=== PATIENT | female | born 1975 | race Caucasian/White ===

== ENCOUNTER 2017-08-06 14:18 | Emergency (ER) | payer BC ==
[2017-08-06 14:57] VITALS: BP 135/74
--- NOTE | 2017-08-06 16:24 | UC ---
Lower Extremity/Ankle HPI - HPI Summary HPI Summary: 15 lb bowling ball fell out of the bag onto the right foot. - History of Current Complaint Chief Complaint: UCLowerExtremity Stated Complaint: RT FOOT INJ Time Seen by Provider: 08/06/17 16:01 Hx Obtained From: Patient Hx Last Menstrual Period: 07/29/17 ?: No Onset/Duration: Sudden Onset, Still Present Severity Initially: Moderate Severity Currently: Moderate Aggravating Factor(s): Standing, Ambulation Alleviating Factor(s): Rest, Elevation Able to Bear Weight: Yes - with difficulty. Using a cane - Allergies/Home Medications Allergies/Adverse Reactions: Allergies Allergy/AdvReac Type Severity Reaction Status Date / Time No Known Allergies Allergy Verified 08/06/17 14:57 Home Medications: Home Medications FLUoxetine CAP* [PROzac CAP*] 20 mg PO DAILY 08/06/17 [History Confirmed ] PMH/Surg Hx/FS Hx/Imm Hx Cardiovascular History: Hypertension Respiratory History: Asthma Neurological History: Migraine Psychological History: Depression - Surgical History Surgical History: Yes Surgery Procedure, Year, and Place: - Family History Known Family History: Positive: Cardiac Disease, Hypertension, Diabetes - Social History Occupation: Employed Full-time Lives: With Family Alcohol Use: Weekly Substance Use Type: None Smoking Status (MU): Heavy Every Day Tobacco Smoker Type: Cigarettes Amount Used/How Often: 1 PPD Length of Time of Smoking/Using Tobacco: 27 Years Have You Smoked in the Last Year: Yes Cessation Counseling: Patient Advised to Stop - Immunization History Most Recent Influenza Vaccination: Not the Season Review of Systems Musculoskeletal: Arthralgia - right foot Is Patient Immunocompromised?: No All Other Systems Reviewed And Are Negative: Yes Physical Exam Triage Information Reviewed: Yes Appearance: Well-Appearing, Well-Nourished, Pain Distress - mild sitting in a wheelchair Vital Signs: Initial Vital Signs Temp 99 F 08/06/17 14:52 Pulse 54 08/06/17 14:52 Resp 16 08/06/17 14:52 BP 135/74 08/06/17 14:52 Pulse Ox 100 08/06/17 14:52 Vital Signs Reviewed: Yes Eyes: Positive: Conjunctiva Clear Neck exam: Normal Respiratory Exam: Normal Cardiovascular Exam: Normal Musculoskeletal: Positive: Strength Limited @ - right foot, ROM Limited @ - right great toe Neurological Exam: Normal Psychological Exam: Normal Skin: Positive: Other - bruising with swelling and tenderness over the right great toe up to the MTP joint. Lower Extremity Course/Dx - Differential Dx/Diagnosis Differential Diagnosis/HQI/PQRI: Contusion, Fracture (Closed), Sprain Provider Diagnoses: Closed fracture right 1st toe distal phalynx Discharge - Discharge Plan Condition: Stable Disposition: HOME Patient Education Materials: Toe Fracture (ED), Crutch Instructions (ED) Referrals: Roselia Cope PA [Primary Care Provider] - Sumanth Velazco MD [Medical Doctor] -
--- NOTE | 2017-08-06 16:32 | RAD ---
HISTORY: Right foot trauma COMPARISONS: None VIEWS: 3, Frontal, lateral, and oblique views of the right foot FINDINGS: BONE DENSITY: Normal. BONES: There is a comminuted nondisplaced fracture of the distal phalanx of the first digit with articular extension. JOINTS: There is no arthropathy. ALIGNMENT: There is no dislocation. SOFT TISSUES: Unremarkable. OTHER FINDINGS: None. IMPRESSION: COMMINUTED NONDISPLACED FRACTURE OF THE DISTAL PHALANX OF THE FIRST DIGIT.
== END 2017-08-06 16:56 | disposition home or self-care (01) ==
LOC: UCCORT 14:18
DX: S92.421A Displaced fracture of distal phalanx of right great toe, initial encounter for closed fracture (principal); W20.8XXA Other cause of strike by thrown, projected or falling object, initial encounter; Y93.9 Activity, unspecified; Y92.9 Unspecified place or not applicable; Z72.0 Tobacco use
CPT/HCPCS: 99213; G0463

== ENCOUNTER → 2018-07-16 07:49 | Day surgery (SDC) | payer BC ==
[~2018-07-16 07:49] MED LIST: Buffered Lidocaine 0.9% SYRIN* 5 ML/SYR SYRINGE INTRADERM ONE; Bupivacaine 0.25% SDV PF* 10 ML VIAL INJ ONE; Dexamethasone TAB* 4 MG ONE; Dexamethasone TAB* 4 MG PO ONE; DiMENhydriNATE IV* 50 MG/ML VIAL IV PUSH PRN; EPHEDrine (Pressors)* 50 MG/ML VIAL ONE; Famotidine IV* 10 MG/ML 2 ML (20 mg) IV ONE; Famotidine IV* 10 MG/ML 2 ML (20 mg) ONE; KETAMINE HCL* 50 MG/ML 10 ML VIAL ONE; Ketorolac INJ* 30 MG/ML 1 ML VIAL ONE; Lactated Ringers 1000 ML Bag* 1,000 ML IV SCH; Lidocaine 2% PF * 5 ML VIAL ONE; Midazolam* 1 MG/ML 5 ML VIAL (5 MG) ONE; Morphine VIAL* 10 MG/ML 1 ML VIAL ONE; Morphine VIAL* 4 MG/ML VIAL (1 ml vial) IV PRN; Naloxone* 0.4 MG/ML 1 ML VIAL IV PRN; Ondansetron INJ* 2 MG/ML VIAL ONE; Ondansetron ODT TAB* 4 MG ONE; PROCHLORPERAZINE INJ 5 MG/ML 2 ML VIAL IV PRN; Propofol* 10 MG/ML 20 ML BTL ONE; Scopolamine 1.5 mg* PATCH TRANSDERM PRN; Scopolamine PATCH Remove* 1 NOTE MISC PATCH OFF ONE; ceFAZolin 2 GM PREMIX in ORs 2 GM/50 ML BAG IVPB ONE; fentaNYL* 50 MCG/ML 2 ML VIAL (100 MCG VIAL) ONE; oxyCODONE/Acetamin 5/325 MG* TAB ONE; oxyCODONE/Acetamin 5/325 MG* TAB PO PRN
[2018-07-16] MEDS: fentaNYL* 50 MCG/ML 2 ML VIAL (100 MCG VIAL) IV PRN ×3 (13:24→13:39)
[2018-07-16 15:05] VITALS: BP 136/90
--- NOTE | 2018-07-19 20:13 | OP ---
DATE OF OPERATION: 07/16/18 - [facility] DATE OF : 75 SURGEON: Mario Medina MD. BIOLOGY LECTURER: JUSTIN Crow. An registered dental assistant rda was needed for the entirety of the procedure to aid in positioning of the arm and retraction. ANESTHESIA: General. PRE-OP DIAGNOSES: 1. 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 2. Right pisotriquetral joint degenerative joint disease. POST-OP DIAGNOSES: 1. 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 2. Right pisotriquetral joint degenerative joint disease. OPERATIVE PROCEDURE: 1. Right wrist arthroscopic partial synovectomy and TFCC debridement. 2. Right pisiform excision. 3. Right ulnar shortening osteotomy. INDICATIONS: Donita is 42 years old. She has a 6- to 7-year history of progressive right ulnar-sided wrist pain. She has had nonoperative treatment and the pain has just progressed over the years. MRI had shown what looked like a central TFCC tear and slight ulnar neutral to ulnar positive variance. Additionally, she had severe pain with any compression of the pisotriquetral joint. I told her that I thought the best thing to do to alleviate her pain would be to excise the pisiform bone, to do an arthroscopic debridement, and to shorten the ulna. She understands that there is a risk that she may have pain despite having surgery. There is also risk of nonunion at the osteotomy site. She wanted to proceed with surgery. FINDINGS: See above and below. ESTIMATED BLOOD LOSS: 2 mL. COMPLICATIONS: None. DESCRIPTION OF PROCEDURE: Donita was seen in the preoperative holding area. The correct site, side, and procedure were identified. We came back to the operating room where the arm was prepped and draped in the usual fashion and a time-out was performed. The arm was placed in the Acumed traction tower and appropriate in-line traction was applied. The arm was then exsanguinated and the tourniquet inflated to 250 mmHg. I developed a 3-4 portal using the 11 blade followed by the mosquito and followed by the blunt trocar. The camera was introduced. The radial-sided structures, all looked good. There was no significant step-off at the scapholunate joint. I came more ulnarly. The lunate facet looked good. The central TFCC was just cell-layer thick and easily penetrable by the probe. I did establish a 6R portal in a standard fashion and I had introduced the probe through that portal. I then introduced the shaver through the 6R portal. I performed a debridement of the TFCC as well as a partial synovectomy. Everything else was looking reasonable, so I withdrew the arthroscopic equipment and we proceeded with the next portion of the case. I took the hand out of the arthroscopic tower and all the arthroscopic equipment was handed off. I then made a V-shaped incision over the pisiform bone and radially based flap was raised off the pisiform. The soft tissue about the pisiform was released, splitting the FCU tendon longitudinally, and then shelling out the pisiform bone; this was removed in its entirety in one piece. I thought prior that I may do an ulnar decompression, but by removing the pisiform bone, we should decompress the ulnar nerve as well, and so I irrigated everything out and I repaired the tendon split with some 3-0 PDS suture. Skin was closed with 4-0 nylon suture. Lastly, I made a longitudinal incision over the [id number] aspect of the ulnar shaft. Dissection was carried down and full-thickness flaps were raised off the fascia. The periosteum over the subcutaneous border of the ulna was incised longitudinally and subperiosteal flaps were used to expose the ulna. The TriMed ulna shortening osteotomy plate was placed on the dorsal aspect of the shaft and clamped into place. One screw was placed in the distal aspect of the oblong hole. On the other side of the plate, three cortical screws were placed. I then secured the lag screw guide with two pins. I then placed the 3- mm cutting block which was what I had selected preoperatively, pinned and clamped this into place, and then made my first osteotomy. Cutting block B was then brought in and again pinned and clamped and then the second osteotomy was made. A wafer of bone was excised. Irrigation was used throughout the osteotomies to prevent thermal necrosis. I then placed the compression clamp in a standard fashion and compressed across the osteotomy. I drilled, tapped, and then placed a lag screw. The remainder of the cortical screws were all placed. I had loosened my oblong hole while placing the lag screw so as to get maximum compression. Once everything was fully tightened down, screw length and everything was checked on mini C-arm fluoroscopy, everything was looking good as were the wrist and elbow. The osteotomy site was hardly visible on the fluoroscopy. We irrigated out and then closed the fascia with 3-0 Vicryl suture. The skin was closed with 4-0 Monocryl suture and Steri-Strips. The portal sites were closed with the Steri-Strips. The Marcaine was infiltrated all about the operative area. The dressings were applied and a sugar-tong splint was applied. Tourniquet was deflated and she was taken to the recovery room in stable condition. [id number]/[facility] #: [id number] DONTRELL
== END | disposition home or self-care (01) ==
LOC: OR 07:49
PROVIDERS: ATTEND Orthopaedic Surgery Hand Surgery
DX: M24.831 Other specific joint derangements of right wrist, not elsewhere classified (principal); G56.21 Lesion of ulnar nerve, right upper limb; I10 Essential (primary) hypertension; F17.210 Nicotine dependence, cigarettes, uncomplicated; F41.8 Other specified anxiety disorders; J45.909 Unspecified asthma, uncomplicated; M19.90 Unspecified osteoarthritis, unspecified site
CPT/HCPCS: 76001; 81025; 88304; 88311; A9270-GY; C1713; C1776; J0690; J1885; J2250; J2270; J2704; J3010; J3490; J8540

== ENCOUNTER 2018-09-22 15:30 | Emergency (ER) | payer BC ==
--- OUTSIDE RECORDS SUMMARY | 2018-09-22 15:39 | XMS REPORT | Continuity of Care Document ---
:1975 External Reference #:[id number] Author Name EdgarRolly selfie Care Team Providers Name Role Phone Roselia Cope RPA Primary Care Physician Unavailable Payers Date Identification Numbers Payment Provider Subscriber Policy Number: [id number] [employer] Donita Diaz PayID: [id number] [address] [address] [place] [address] Advance Directives Description No Information Available Problems Date Description Provider Status Onset: 05/18/2018 Other specific joint derangements of Mario Medina MD Active right wrist, not elsewhere classified Onset: 05/18/2018 Lesion of ulnar nerve Mario Medina MD Active Family History Date Family Member(s) Observation Comments General Diabetes General Heart Disease General Hypertension General Cancer General Depression Father Heart Disease Father Hypertension Father Diabetes Mother Depression Social History Type Date Description Comments Sex Unknown Marital Status Lives With Spouse 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 Tobacco Use Start: Unknown Current Cigarette Smoker 1 Pack Daily Smoking Status Reviewed: 08/24/18 Current Cigarette Smoker 1 Pack Daily ETOH Use Drinks 2 Alcoholic Beverages Per Week Tobacco Use Start: Unknown Heavy tobacco smoker (more than 10 cigarettes/day) Recreational Drug Use Denies Drug Use Exercise Type/Frequency Exercises sporadically Allergies, Adverse Reactions, Alerts Description No Known Drug Allergies Medications Medication Date Status Form Strength Qnty SIG Indications Ordering Provider Metoclopramide 00/00/ Active Tablets 10mg TK 1 T PO Unknown HCL 0000 tid prn For Nausea Fluoxetine HCL 00/00/ Active Capsules 20mg TK 1 C PO Unknown 0000 qd Sumatriptan 00/00/ Active Tablets 100mg 9tabs as needed Unknown Succinate 0000 Trazodone HCL 00/00/ Active Tablets 100mg TK 1 by Unknown 0000 mouth daily Nadolol 00/00/ Active Tablets 20mg TK 1 T PO Unknown 0000 qd Ibuprofen 00/00/ Active Tablets 200mg 4 tabs by Unknown 0000 mouth as needed Hydrocodone-Acet 07/16/ Hx Tablets 5-325mg 30tabs 1 or 2 Mario aminophen 2018 - tabs by MD Carol 08/21/ mouth 2019 every 6-8 hours as needed for pain Ibuprofen 08/07/ Hx Tablets 800mg 90tabs 1 by mouth [id number] Sumanth Ornelas 2017 - three MD Mora 05/17/ times a 2017 day w food as needed pain and swelling Immunizations Description No Information Available Vital Signs Date Vital Result Comment 08/24/2018 10:55am Height 64.75 inches 5'4.75" Weight 212.00 lb BP Systolic Sitting 124 mmHg BP Diastolic Sitting 78 mmHg Respiratory Rate 16 /min Pain Level 4 swelling noted BMI (Body Mass Index) 35.5 kg/m2 07/27/2018 9:53am Height 64.75 inches 5'4.75" Heart Rate 82 /min BP Systolic Sitting 100 mmHg BP Diastolic Sitting 72 mmHg Body Temperature 99.6 F Pain Level 8 07/06/2018 9:49am Height 64.75 inches 5'4.75" Weight 212.00 lb Heart Rate 64 /min BP Systolic 122 mmHg BP Diastolic 76 mmHg Pain Level 7 BMI (Body Mass Index) 35.5 kg/m2 05/18/2018 1:45pm Height 64.75 inches 5'4.75" Weight 210.00 lb Heart Rate 71 /min BP Systolic Sitting 114 mmHg BP Diastolic Sitting 84 mmHg Respiratory Rate 16 /min Pain Level 3 O2 % BldC Oximetry 94 % BMI (Body Mass Index) 35.2 kg/m2 08/07/2017 12:53pm Height 66 inches 5'6" Weight 181.31 lb Heart Rate 66 /min BP Systolic Sitting 128 mmHg BP Diastolic Sitting 72 mmHg Respiratory Rate 18 /min Pain Level 7 BMI (Body Mass Index) 29.3 kg/m2 Results Test Date Facility Test Result H/L Range Note Laboratory test 07/16/2018 [facility] Surgical SEE RESULT [address] [place] [address] [phone] 1 SEE RESULT BELOW Name: DONITA PINEDA : [address]: Mario Medina MD Acct: [id number] Unit: [id number] AGE: 42 Location: OR Re07/16/18 SEX: F Status: REG SDC SPEC: [id number] KARI: 07/16/18- [facility] DR: Mario Medina MD REQ: [id number] RECD: 07/16/18 STATUS: SOUT _ ORDERED: Patricio, LEVEL 3 FINAL DIAGNOSIS Right ulnar shaft, excision: -- Benign bone fragment. PRE-OPERATIVE DIAGNOSIS Other specific derangement of right wrist GROSS DESCRIPTION The specimen is received in formalin labeled, Right Ulnar Shaft, and consists of a 2.0 x 1.2 x 0.2 cm momin-white annular bone fragment with a central 0.5 x 0.4 cm defect. Entirely submitted, one cassette following decalcification. Signed by and Reported on: Stephani Patel MD 07/20/18 1350 END OF REPORT DEPARTMENT OF PATHOLOGY, [address] [place] [address] Gareth Worrell M.D. Director [facility] # [id number] Procedures Date Code Description Status 07/16/2018 11079 Arthroscopy Wrist Excision/Repair Triang Completed Fibrocartilage/Debride 07/16/2018 71681 Arthroscopy Wrist Excision/Repair Triang Completed Fibrocartilage/Debride 07/16/2018 77211 Osteoplasty Shorten Radius Or Ulna Completed 07/16/2018 73259 Osteoplasty Shorten Radius Or Ulna Completed 07/16/2018 93430 Carpectomy One Bone Completed 08/07/2017 77578 FX Treatment Great Toe; Closed w/o manipulation Completed Encounters Type Date Location Provider Dx Diagnosis Office Visit 05/18/2018 Orthopedic Mario Medina, M24.831 Ot [facility] G56.21 Lesion of ulnar nerve, right upper limb Plan of Treatment Future Appointment(s):09/28/2018 10:30 am - Mario Medina MD at [facility]05/08/2019 - Mario Medina, MDM24.831 Other specific joint derangements of right wrist, not elsewhNew Xrays:Forearm Right 2 VWS, Ordered: 08/24/18Wrist Right 3+ VWS, Ordered: 08/24/18New Therapy:Physical TherapyFollow up:Follow up: 4 elhgbY90.21 Lesion of ulnar nerve, right upper limb
[2018-09-22 15:47] VITALS: BP 108/65
--- NOTE | 2018-09-22 15:55 | UC ---
Respiratory Complaint HPI - HPI Summary HPI Summary: C/O cough x 1 week, worsening, with cough productive of green sputum. Wheezing/ sinus pain worse at night. Still smoking. - History of Current Complaint Chief Complaint: UCRespiratory Stated Complaint: COUGH Hx Obtained From: Patient Hx Last Menstrual Period: uterine ablation ?: No Onset/Duration: Sudden Onset, Lasting Weeks - 1, Worse Since - onset Timing: Constant Severity Initially: Mild Severity Currently: Moderate Pain Intensity: 4 Character: Cough: Productive Aggravating Factors: Deep Breaths, Recumbent Position Alleviating Factors: Nothing Associated Signs And Symptoms: Positive: Dyspnea, Chills, Wheezing, URI, Nasal Congestion, Sinus Discomfort - Risk Factors Pulmonary Embolism Risk Factors: Smoking Cardiac Risk Factors: Smoking - Allergies/Home Medications Allergies/Adverse Reactions: Allergies Allergy/AdvReac Type Severity Reaction Status Date / Time No Known Allergies Allergy Verified 07/11/18 13:29 Home Medications: Home Medications guaiFENesin ER TAB [Mucinex*] 600 mg PO BID 09/22/18 [History Confirmed 09/22/18 ] PMH/Surg Hx/FS Hx/Imm Hx Cardiovascular History: Hypertension Respiratory History: Asthma Psychological History: Depression - Surgical History Surgical History: Yes Surgery Procedure, Year, and Place: x2 1995,1998. D&C with ablation . R arm surgery - Family History Known Family History: Positive: Cardiac Disease, Hypertension, Diabetes - Social History Occupation: Disabled Lives: With Family Alcohol Use: Occasionally Substance Use Type: None Smoking Status (MU): Light Every Day Tobacco Smoker Type: Cigarettes Amount Used/How Often: 1 PPD Length of Time of Smoking/Using Tobacco: 27 Years Have You Smoked in the Last Year: Yes Cessation Counseling: Patient Advised to Stop - Immunization History Most Recent Influenza Vaccination: Not the Season Review of Systems All Other Systems Reviewed And Are Negative: Yes Constitutional: Positive: Chills, Fatigue ENT: Positive: Sore Throat, Nasal Discharge, Sinus Congestion Respiratory: Positive: Shortness Of Breath, Cough Is Patient Immunocompromised?: No Physical Exam Triage Information Reviewed: Yes Appearance: No Pain Distress, Ill-Appearing, Obese Vital Signs: Initial Vital Signs Temp 97.3 F 09/22/18 15:44 Pulse 79 09/22/18 15:44 Resp 18 09/22/18 15:44 BP 108/65 09/22/18 15:44 Pulse Ox 98 09/22/18 15:44 Vital Signs Reviewed: Yes Eyes: Positive: Conjunctiva Inflamed ENT: Positive: Pharynx normal, Nasal congestion, TMs normal Neck exam: Normal Respiratory: Positive: Wheezing - expiratory wheeze with coughing Cardiovascular Exam: Normal Musculoskeletal Exam: Normal Neurological Exam: Normal Psychological Exam: Normal Skin Exam: Normal Respiratory Course/Dx - Differential Dx/Diagnosis Differential Diagnosis/HQI/PQRI: Asthma, Lower Resp Infection, Sinusitis Provider Diagnosis: Upper respiratory infection, Bronchospasm, acute, Sinusitis Discharge - Sign-Out/Discharge Documenting (check all that apply): Patient Departure All imaging exams completed and their final reports reviewed: No Studies - Discharge Plan Condition: Stable Disposition: HOME Prescriptions: Albuterol HFA INHALER* [Ventolin HFA Inhaler*] 2 puff INH Q4H PRN #1 mdi PRN Reason: Sob/Wheezing DOXYcycline CAP(*) [DOXYcycline 100MG CAP(*)] 100 mg PO BID #20 cap predniSONE TAB* [Deltasone 20 MG TAB*] 60 mg PO DAILY #18 tab Patient Education Materials: Upper Respiratory Infection (ED), Wheezing (ED), Prednisone (By mouth), Sinusitis (ED), Doxycycline (By mouth) Referrals: Roselia Cope PA [Primary Care Provider] - Additional Instructions: Smoking Cessation Tricks. 1. Cut down by 1 cigarette per day every 2-3 days. Write the number of smokes for that day on the calendar. 2. Identify triggers to smoking: after meals, on the phone, in the car, with coffee, on breaks at work, etc. 3. Formulate a plan with a behavior to replace the smoking. Fireballs in the car , doodle pad on the phone, flavored creamer for the coffee, go for a walk after a meal or on break at work. 4. For stress smokes do deep breathing relaxation. Breath deep in through the nose hold the breath in for a few seconds then breath out slowly through the mouth. - Billing Disposition and Condition Condition: STABLE Disposition: Home
== END 2018-09-22 16:11 | disposition home or self-care (01) ==
LOC: UCCORT 15:30
DX: J01.90 Acute sinusitis, unspecified (principal); J98.01 Acute bronchospasm; I10 Essential (primary) hypertension; J45.909 Unspecified asthma, uncomplicated; F17.210 Nicotine dependence, cigarettes, uncomplicated; Z79.899 Other long term (current) drug therapy
CPT/HCPCS: 99212; G0463

== ENCOUNTER 2018-11-06 08:33 | Emergency (ER) | payer BC ==
[2018-11-06 08:53] VITALS: BP 116/70
--- NOTE | 2018-11-06 09:12 | UC ---
Throat Pain/Nasal Jesus HPI - HPI Summary HPI Summary: sinus pain and pressure x 4 weeks nasal congestion , pnd, productive cough with yellow sputum , fever, chills and body aches - History of Current Complaint Chief Complaint: UCRespiratory Stated Complaint: SINUSES,CONGESTION Time Seen by Provider: 11/06/18 08:56 Hx Obtained From: Patient Hx Last Menstrual Period: uterine ablation ?: No Onset/Duration: Gradual Onset, Lasting Weeks - 4, Still Present Severity: Moderate Pain Intensity: 7 Cough: Sputum Appears - yellow Associated Signs & Symptoms: Positive: Wheezing, Sinus Discomfort, Nasal Discharge, Fever. Negative: Rash - Allergies/Home Medications Allergies/Adverse Reactions: Allergies Allergy/AdvReac Type Severity Reaction Status Date / Time No Known Allergies Allergy Verified 11/06/18 08:52 PMH/Surg Hx/FS Hx/Imm Hx Cardiovascular History: Hypertension Respiratory History: Asthma Neurological History: Migraine Psychological History: Depression - Surgical History Surgical History: Yes Surgery Procedure, Year, and Place: x2 1995,1998. D&C with ablation . R arm surgery - Family History Known Family History: Positive: Cardiac Disease, Hypertension, Diabetes - Social History Alcohol Use: Occasionally Substance Use Type: None Smoking Status (MU): Heavy Every Day Tobacco Smoker Type: Cigarettes Amount Used/How Often: 1 PPD Length of Time of Smoking/Using Tobacco: 27 Years Have You Smoked in the Last Year: Yes - Immunization History Most Recent Influenza Vaccination: Not the Season Review of Systems All Other Systems Reviewed And Are Negative: Yes Constitutional: Positive: Fever, Chills, Fatigue Skin: Positive: Negative Eyes: Positive: Negative ENT: Positive: Nasal Discharge, Sinus Congestion, Sinus Pain/Tenderness Respiratory: Positive: Shortness Of Breath, Cough Is Patient Immunocompromised?: No Physical Exam Triage Information Reviewed: Yes Appearance: Well-Appearing, No Pain Distress, Well-Nourished Vital Signs: Initial Vital Signs Temp 97.4 F 11/06/18 08:47 Pulse 67 11/06/18 08:47 Resp 16 11/06/18 08:47 BP 116/70 11/06/18 08:47 Pulse Ox 98 11/06/18 08:47 Vital Signs Reviewed: Yes Eye Exam: Normal Eyes: Positive: Conjunctiva Clear ENT: Positive: Normal ENT inspection, Hearing grossly normal, Pharyngeal erythema, Nasal congestion, Nasal drainage, TMs normal, Sinus tenderness. Negative: TM bulging, TM dull, TM red Neck exam: Normal Neck: Positive: Supple, Nontender Respiratory: Positive: Chest non-tender, Lungs clear, Normal breath sounds, No respiratory distress Cardiovascular: Positive: RRR, No Murmur, Pulses Normal Skin Exam: Normal Throat Pain/Nasal Course/Dx - Differential Dx/Diagnosis Provider Diagnosis: Bronchitis, Sinusitis Discharge - Sign-Out/Discharge Documenting (check all that apply): Patient Departure All imaging exams completed and their final reports reviewed: No Studies - Discharge Plan Condition: Stable Disposition: HOME Prescriptions: Albuterol HFA INHALER* [Ventolin HFA Inhaler*] 2 puff INH Q6H PRN #1 mdi PRN Reason: Wheezing Codeine Phosphate/Guaifenesin [Cheratussin AC] 10 ml PO Q8H #120 ml MDD 30 ml predniSONE [Prednisone 20 MG TAB] 20 mg PO BID #10 tablet Patient Education Materials: Sinusitis (ED) Referrals: Roselia Cope PA [Primary Care Provider] - 7 Days - Billing Disposition and Condition Condition: STABLE Disposition: Home
== END 2018-11-06 09:14 | disposition home or self-care (01) ==
LOC: UCCORT 08:33
DX: J45.909 Unspecified asthma, uncomplicated (principal); J32.9 Chronic sinusitis, unspecified; I10 Essential (primary) hypertension; G43.909 Migraine, unspecified, not intractable, without status migrainosus; F32.9 Major depressive disorder, single episode, unspecified; F17.210 Nicotine dependence, cigarettes, uncomplicated
CPT/HCPCS: 99212; G0463

== ENCOUNTER 2019-03-25 17:48 | Emergency (ER) | payer BC ==
[2019-03-25 18:27] VITALS: BP 116/72
--- NOTE | 2019-03-25 20:28 | UC ---
Shortness of Breath HPI - HPI Summary HPI Summary: 43 year old female presents with coughing, non-productive, shortness of breath, wheezing, chills, fatigue, body aches. Denies ear pain. NO recent abx, was given steroids for similar symptoms approximately a year ago. - History of Current Complaint Chief Complaint: UCGeneralIllness Stated Complaint: COUGH/CONGESTION Time Seen by Provider: 03/25/19 18:29 Hx Last Menstrual Period: ablation ?: No Onset/Duration: Sudden Onset, Lasting Days - 8 days Timing: Constant Dyspnea At: Rest, Exertion Aggravating Factors: Deep Breaths, Recumbent Position Alleviating Factors: Bronchodilators - albuterol, however minimal help, OTC Meds Associated Signs & Symptoms: Positive: Cough (Nonproductive), Wheezing, Dizzy - x 1 while cough a lot. Negative: Fever - Allergy/Home Medications Allergies/Adverse Reactions: Allergies Allergy/AdvReac Type Severity Reaction Status Date / Time No Known Allergies Allergy Verified 03/25/19 18:20 Home Medications: Home Medications Dextromethorphan Hb/Doxylamine [Night Time Cough Liquid] 1 udc PO BEDTIME PRN [History Confirmed 03/25/19] PMH/Surg Hx/FS Hx/Imm Hx Previously Healthy: No Endocrine History: Thyroid Disease Respiratory History: Other - TOB h/o - Surgical History Surgical History: Yes Surgery Procedure, Year, and Place: x2 1995,1998. D&C with ablation . R arm surgery - Family History Known Family History: Positive: Cardiac Disease, Hypertension, Diabetes, Non- Contributory - Social History Alcohol Use: Occasionally Substance Use Type: None Smoking Status (MU): Heavy Every Day Tobacco Smoker Type: Cigarettes Amount Used/How Often: 1/2 PPD Length of Time of Smoking/Using Tobacco: 27 Years Have You Smoked in the Last Year: Yes - Immunization History Most Recent Influenza Vaccination: Not the 2013/2014 Season Review of Systems All Other Systems Reviewed And Are Negative: Yes Constitutional: Positive: Fatigue ENT: Positive: Sore Throat, Nasal Discharge, Sinus Congestion, Sinus Pain/ Tenderness Respiratory: Positive: Shortness Of Breath, Cough Is Patient Immunocompromised?: No Physical Exam Triage Information Reviewed: Yes Appearance: No Pain Distress, Well-Nourished, Ill-Appearing - moderate Vital Signs: Initial Vital Signs Temp 98.2 F 03/25/19 18:24 Pulse 74 03/25/19 18:24 Resp 18 03/25/19 18:24 BP 116/72 03/25/19 18:24 Pulse Ox 97 03/25/19 18:24 Eyes: Positive: Conjunctiva Clear ENT: Positive: Pharynx normal, TMs normal, TM bulging, TM dull, TM red, Sinus tenderness - b/l frontal, max. Negative: Tonsillar swelling, Tonsillar exudate Neck: Positive: Supple, Nontender, No Lymphadenopathy. Negative: Nuchal Rigidity, Enlarged Nodes @ Respiratory: Positive: Chest non-tender, Normal breath sounds, No respiratory distress, No accessory muscle use, Wheezing - expiratory mild b/l Cardiovascular: Positive: RRR, No Murmur Musculoskeletal: Positive: Strength Intact Neurological: Positive: Alert Skin Exam: Normal Shortness of Breath Dx - Course Course Of Treatment: Acute bronchitis, sinusitis - Antibiotics as directed due to h/o tob use daily and currently. - Albuterol inhaler as needed for shortness of breath, coughing - Medrol dose pack to help cough, decreased wheezing. Take as directions on packet. - Increase fluid intake - Humidifer at night to help with cough - Benadryl as needed to decrease congestion, post nasal drip - GO to ER with increased shortness of breath, fever > 102 - FOllow up with primary physician within 2-3 days if no improvement - Differential Dx/Diagnosis Differential Diagnosis/HQI/PQRI: Bronchitis Provider Diagnosis: Acute bronchitis, Sinusitis Discharge ED - Sign-Out/Discharge Documenting (check all that apply): Patient Departure All imaging exams completed and their final reports reviewed: No Studies - Discharge Plan Condition: Good Disposition: HOME Prescriptions: Amoxicillin/Clavulanate TAB* [Augmentin TAB 875*] 875 mg PO BID #14 tab methylPREDNISolone [Medrol Dosepak 4 MG*] 0 mg PO .SEE BILLIE INSTRUCTION #1 billie Patient Education Materials: Acute Bronchitis (ED), Sinusitis (ED) Referrals: Roselia Cope PA [Primary Care Provider] - Additional Instructions: - Antibiotics as directed - Albuterol inhaler as needed for shortness of breath, coughing - Medrol dose pack to help cough, decreased wheezing. Take as directions on packet. - Increase fluid intake - Humidifer at night to help with cough - Benadryl as needed to decrease congestion, post nasal drip - GO to ER with increased shortness of breath, fever > 102 - FOllow up with primary physician within 2-3 days if no improvement - Billing Disposition and Condition Condition: GOOD Disposition: Home
== END 2019-03-25 19:03 | disposition home or self-care (01) ==
LOC: UCCORT 17:48
DX: J20.9 Acute bronchitis, unspecified (principal); J32.9 Chronic sinusitis, unspecified; F17.210 Nicotine dependence, cigarettes, uncomplicated
CPT/HCPCS: 99212; G0463

== ENCOUNTER 2019-07-29 16:04 | Emergency (ER) | payer BC ==
[2019-07-29 16:15] VITALS: BP 122/92
--- NOTE | 2019-07-29 16:18 | UC ---
Respiratory Complaint HPI - HPI Summary HPI Summary: 43 y/o female presents to the urgent care c/o nasal congestion w/ yellowish nasal discharge w/ sinus pain and AQUINO for more that a week. Symptoms worsen about 4 day ago w/ dry cough, moderate PND and RT ear pressure and pain. She has been able to sleep well due to cough last night. she has been taken Tylenol cold and cough to alleviate symptoms w/o any improvement. sinus pain is 5/10. Pt has felt subjective fever at times. Pt denies wheezing, dizziness, SOB, chest pain, abdominal pain, N/V/d. - History of Current Complaint Chief Complaint: UCGeneralIllness Stated Complaint: COUGH/CHEST/CONGESTION Time Seen by Provider: 07/29/19 16:17 Hx Obtained From: Patient Hx Last Menstrual Period: ablation Onset/Duration: Gradual Onset, Lasting Weeks - more than 1 week w/ URI symptoms , Still Present, Worse Since - 3 days Severity Initially: Mild Severity Currently: Moderate Pain Intensity: 5 - sinus pain Pain Scale Used: 0-10 Numeric Character: Cough: Nonproductive Aggravating Factors: Recumbent Position Alleviating Factors: OTC Meds Associated Signs And Symptoms: Positive: Fever, URI, Nasal Congestion - yellowish, Sinus Discomfort. Negative: Wheezing, Dizziness - Risk Factors Pulmonary Embolism Risk Factors: Negative Cardiac Risk Factors: Negative Pseudomonas Risk Factors: Negative - Allergies/Home Medications Allergies/Adverse Reactions: Allergies Allergy/AdvReac Type Severity Reaction Status Date / Time No Known Allergies Allergy Verified 07/29/19 16:14 Home Medications: Home Medications Phenylephrine/Dm/Acetaminop/GG [Tylenol Cold-Flu Severe Caplet] 1 each PO ONCE PRN 07/29/19 [History Confirmed 07/29/19] PMH/Surg Hx/FS Hx/Imm Hx Previously Healthy: Yes Respiratory History: Asthma - controlled - Surgical History Surgical History: Yes Surgery Procedure, Year, and Place: x2 1995,1998- W/ TUBAL LIGATION - . D&C with ablation 01/2018. 07/16/19 - Rt FORARM & WRIST - W/ PLATES & SCREWS - Family History Known Family History: Positive: Cardiac Disease, Hypertension, Diabetes - Social History Occupation: Employed Full-time Lives: With Family Alcohol Use: Weekly Substance Use Type: None Smoking Status (MU): Heavy Every Day Tobacco Smoker Type: Cigarettes Amount Used/How Often: 1 ppd Length of Time of Smoking/Using Tobacco: 27 Years Have You Smoked in the Last Year: Yes - Immunization History Most Recent Influenza Vaccination: Not the 2013/2014 Season Review of Systems All Other Systems Reviewed And Are Negative: Yes Constitutional: Positive: Fever - subjective at home Eyes: Positive: Negative ENT: Positive: Sore Throat - mild, Nasal Discharge - yellowish, Sinus Congestion , Sinus Pain/Tenderness, Other - yellowish PND Respiratory: Positive: Cough - dry Cardiovascular: Positive: Negative Gastrointestinal: Positive: Negative Genitourinary: Positive: Negative Motor: Positive: Negative Neurovascular: Positive: Negative Musculoskeletal: Positive: Negative Neurological: Positive: Headache Psychological: Positive: Negative Is Patient Immunocompromised?: No Physical Exam - Summary Physical Exam Summary: Vitals: reviewed General: Well developed, well-nourished obee female patient with NAD. Head and face: Normocephalic and atraumatic, Positive tenderness over the frontal and maxillary sinuses.. Eyes: PERRLA, EOMI x 2. Normal conjunctiva. No eye discharge. ENT: Ears and TM with normal limits. Nose: edematous and erythematous nasal mucosa with with yellowish discharge and erythematous mucosa. Pharynx with erythema, no exudate. yellowish PND Neck: Supple, no JVD, no carotid bruits and no lymphadenopathy. Lungs: clear, no rales, no rhonchi, no wheezes. CVS: RRR, S1 and S2 present no murmurs or gallops appreciated. Abdomen: soft nontender with positive bowel sounds. Extremities: no edema noted. Neuro: WNL. Skin: warm and dry Triage Information Reviewed: Yes Vital Signs: Initial Vital Signs Temp 98.2 F 07/29/19 16:10 Pulse 68 07/29/19 16:10 Resp 17 07/29/19 16:10 BP 122/92 07/29/19 16:10 Pulse Ox 97 07/29/19 16:10 Respiratory Course/Dx - Course Course Of Treatment: 43 y/o female presents to the urgent care c/o nasal congestion w/ yellowish nasal discharge w/ sinus pain and AQUINO for more that a week. Symptoms worsen about 4 day ago w/ dry cough, moderate PND and RT ear pressure and pain. She has been able to sleep well due to cough last night. she has been taken Tylenol cold and cough to alleviate symptoms w/o any improvement. sinus pain is 5/10. Pt has felt subjective fever at times. Pt denies wheezing, dizziness, SOB, chest pain, abdominal pain, N/V/d. Pt with more than 1 week of symptoms getting worse. Pt Rx Amoxicillin PO and flonase nasal spray. Tessalon PO for cough. Pt's BP is elevated today advised to decrease salt in diet, monitor BP and f/u with PCP for further management. Discharge instructions explained to Pt. Advised to Return to the clinic or PCP in 3 days if symptoms do not improve.Pt understood and agreed with plan of care. - Differential Dx/Diagnosis Differential Diagnosis/HQI/PQRI: Asthma, Bronchitis, Exacerbation Of COPD, Influenza, Lower Resp Infection, Other - pneumonia Provider Diagnosis: Acute bacterial sinusitis, Cough, Elevated BP without diagnosis of hypertension Discharge ED - Sign-Out/Discharge Documenting (check all that apply): Patient Departure - d/c home All imaging exams completed and their final reports reviewed: No Studies - Discharge Plan Condition: Stable Disposition: HOME Prescriptions: Amoxicillin PO (*) [Amoxicillin 875 MG (*)] 875 mg PO BID #20 tab Benzonatate CAP* [Tessalon 100 MG CAP*] 100 mg PO TID PRN #21 cap PRN Reason: Cough Fluticasone NASAL SPRAY 50MCG* [Flonase NASAL SPRAY 50MCG*] 2 spray BOTH NARES DAILY #1 btl Patient Education Materials: Sinusitis (ED) Referrals: Roselia Cope PA [Primary Care Provider] - 3 Days Additional Instructions: 1- Please increase fluid intake and rest. take full course of antibiotics to avoid resistance. Take yogurts w/ probiotics or Culturelle to protect your GI system 2-Use Flonase as directed to help drain fluid. Also buy saline drops to clear sinuses 3-Take Tessalon tabs PO as directed to alleviate cough. Use a humidifier at night 4-Please f/u w/ your PCP in 3 days if symptoms do not improve for further management and treatment 5-Your BP is elevated today advised to decrease salt in diet, monitor BP and f/ u with PCP for further management. - Billing Disposition and Condition Condition: STABLE Disposition: Home
== END 2019-07-29 16:43 | disposition home or self-care (01) ==
LOC: UCCORT 16:04
DX: J01.90 Acute sinusitis, unspecified (principal); B96.89 Other specified bacterial agents as the cause of diseases classified elsewhere; R05 Cough; R03.0 Elevated blood-pressure reading, without diagnosis of hypertension; J45.909 Unspecified asthma, uncomplicated; F17.210 Nicotine dependence, cigarettes, uncomplicated
CPT/HCPCS: 99212; G0463

== ENCOUNTER 2019-08-12 18:02 | Emergency (ER) | payer BC ==
[2019-08-12 18:19] VITALS: BP 129/68
--- NOTE | 2019-08-12 18:38 | UC ---
Knee Pain HPI - HPI Summary HPI Summary: 43 yo with left knee and left elbow pain since a fall. Fall directly onto the left knee when the lace of her boot tripped her up, falling directly onto the knee and left arm. she has abrasions of both the knee and elbow area, with swelling and bruising around the left knee. - History of Current Complaint Chief Complaint: UCUpperExtremity Stated Complaint: LEFT KNEE/LEFT ELBOW Time Seen by Provider: 08/12/19 18:30 Hx Obtained From: Patient Hx Last Menstrual Period: ablation Onset/Duration: Sudden Onset, Lasting Days - 2 Severity Initially: Moderate Severity Currently: Moderate Pain Intensity: 7 Character: Aching, Throbbing, Stiffness Aggravating Factor(s): Movement Alleviating Factor(s): Rest Associated Signs And Symptoms: Positive: Swelling, Bruising Able to Bear Weight: Yes - Risk Factors Septic Arthritis Risk Factor: Negative Gout Risk Factor: Negative - Allergies/Home Medications Allergies/Adverse Reactions: Allergies Allergy/AdvReac Type Severity Reaction Status Date / Time No Known Allergies Allergy Verified 08/12/19 18:19 PMH/Surg Hx/FS Hx/Imm Hx Previously Healthy: Yes - overweight - Surgical History Surgical History: Yes Surgery Procedure, Year, and Place: x2 1995,1998- W/ TUBAL LIGATION - 99. D&C with ablation 01/2018. 07/16/18 - Rt FORARM & WRIST - W/ PLATES & SCREWS - Family History Known Family History: Positive: Cardiac Disease, Hypertension, Diabetes, Non- Contributory - Social History Occupation: Employed Full-time Lives: With Family Alcohol Use: Weekly Substance Use Type: None Smoking Status (MU): Heavy Every Day Tobacco Smoker Type: Cigarettes Amount Used/How Often: 1 ppd Length of Time of Smoking/Using Tobacco: 27 Years Have You Smoked in the Last Year: Yes - Immunization History Most Recent Influenza Vaccination: Not the 2013/2014 Season Review of Systems All Other Systems Reviewed And Are Negative: Yes Constitutional: Positive: Negative Skin: Positive: Other - abrasion left elbow Eyes: Positive: Negative ENT: Positive: Negative Respiratory: Positive: Negative Cardiovascular: Positive: Negative Gastrointestinal: Positive: Negative Genitourinary: Positive: Negative Motor: Positive: Decreased ROM - left elbow Neurovascular: Positive: Negative Musculoskeletal: Positive: Arthralgia, Myalgia, Other: - ecchymosis left efra- medial knee Neurological: Positive: Negative Psychological: Positive: Negative Is Patient Immunocompromised?: No Physical Exam Triage Information Reviewed: Yes Appearance: Well-Appearing, Pain Distress - mild, Obese Vital Signs: Initial Vital Signs Temp 99.3 F 08/12/19 18:13 Pulse 83 08/12/19 18:13 Resp 16 08/12/19 18:13 BP 129/68 08/12/19 18:13 Pulse Ox 98 08/12/19 18:13 Eye Exam: Normal ENT Exam: Normal Neck exam: Normal Neck: Positive: Supple, Nontender, No Lymphadenopathy Respiratory: Positive: Lungs clear, Normal breath sounds Cardiovascular: Positive: RRR, No Murmur Musculoskeletal Exam: Other - Left elbow with abraded area over the proximal ulna 5 x 6 cm + ecchymosis and mild swelling. Pain with full flexion and pronation. Musculoskeletal: Positive: Strength Intact, ROM Limited @ - left elbow with, Other: - left knee with TTP medial joint line, with large ecchymosis over proximal knee. Flexion to 90 degrees, negative Lachmann, cannot assess Mac Cooley. Bearing essentially full weight in the left knee. Neurological Exam: Normal Neurological: Positive: Alert, Muscle Tone Normal Psychological Exam: Normal Skin Exam: Other - abrasion on left elbow and inferior to left patella Diagnostics - Radiology No standard instances Radiology Interpretation Completed By: ED Physician - Left elbow with small effusion, no fracture seen Left knee with maintained joint space, bones intact. Knee Pain Course/Dx - Course Course Of Treatment: sling to left arm with ortho follow up to rule out occult fracture. RICE for left knee. Aware that films will be reviewed by radiology. - Differential Dx/Diagnosis Differential Diagnosis/HQI/PQRI: Contusion, Fracture (Closed), Sprain, Strain Provider Diagnosis: Effusion of elbow joint, left, Contusion of left knee Discharge ED - Sign-Out/Discharge Documenting (check all that apply): Patient Departure All imaging exams completed and their final reports reviewed: No - Discharge Plan Condition: Stable Disposition: HOME Patient Education Materials: Contusion in Adults (ED), Swollen Joint (ED) Referrals: Roselia Cope PA [Primary Care Provider] - Sumanth Velazco MD [Medical Doctor] - Additional Instructions: Please keep your left arm in a sling and follow up with orthopedics as advised. The radiologist will review the xrays in the morning and you will be called if there is a discrepancy. Continue acetaminophen for control of pain, and ensure that you ice both the knee and the left elbow. Apply topical antibiotic ointment to the abraded areas on the knee and elbow. - Billing Disposition and Condition Condition: STABLE Disposition: Home
--- NOTE | 2019-08-13 07:31 | UC ---
- Progress Note Progress Note: xray report left elbow : FINDINGS: There is posterior soft tissue swelling. There is a small joint effusion. No fracture is seen. Joint spaces appear maintained. IMPRESSION: THERE IS A JOINT EFFUSION PRESENT. NO FRACTURE IS SEEN. IF THE PATIENT'S SYMPTOMS PERSIST RECOMMEND A FOLLOW-UP X-RAY STUDY OF THE ELBOW IN 7-10 DAYS TO EXCLUDE A RADIOGRAPHICALLY OCCULT FRACTURE. xray report left knee: IMPRESSION: SOFT TISSUE SWELLING, NO FRACTURE IS SEEN. please call the pt. with the xray report of left elbow , make sure she follow up with Ortho / Dr. Velazco Course/Dx - Diagnoses Provider Diagnoses: Effusion of elbow joint, left, Contusion of left knee Discharge ED - Sign-Out/Discharge Documenting (check all that apply): Patient Departure All imaging exams completed and their final reports reviewed: Yes - Discharge Plan Condition: Stable Disposition: HOME Patient Education Materials: Contusion in Adults (ED), Swollen Joint (ED) Referrals: Sumanth Velazco MD [Medical Doctor] - Roselia Cope PA [Primary Care Provider] - Additional Instructions: Please keep your left arm in a sling and follow up with orthopedics as advised. The radiologist will review the xrays in the morning and you will be called if there is a discrepancy. Continue acetaminophen for control of pain, and ensure that you ice both the knee and the left elbow. Apply topical antibiotic ointment to the abraded areas on the knee and elbow. - Billing Disposition and Condition Condition: STABLE Disposition: Home
== END 2019-08-12 19:45 | disposition home or self-care (01) ==
LOC: UCCORT 18:02
DX: M25.422 Effusion, left elbow (principal); S80.02XA Contusion of left knee, initial encounter; W18.30XA Fall on same level, unspecified, initial encounter; Y92.9 Unspecified place or not applicable; F17.210 Nicotine dependence, cigarettes, uncomplicated
CPT/HCPCS: 99211; G0463